=== PATIENT | male | born 1950 | race Hispanic/Latino ===

== ENCOUNTER 2020-12-23 22:33 | Emergency (ER) | payer OTHER ==
[2020-12-23 23:17] LABS: Basophils % 0.6 % (0-1.3); Hematocrit 36.4 % (39.6-49.0); Lymphocytes % 27.9 % (15.3-44.8); MPV 7.7 fL (7.6-11.3); RBC Red Blood Cell Count 4.43 M/uL (4.33-5.43)
[2020-12-23 23:18] LABS: Protime INR 0.98
[2020-12-23 23:31] LABS: ALT/SGPT 47 U/L (12-78); AST/SGOT 34 U/L (15-37); Albumin 3.9 g/dL (3.4-5.0); Alkaline Phosphatase 86 U/L (45-117); BUN Blood Urea Nitrogen 35 mg/dL (7-18); Bicarbonate 29 mmol/L (21-32); Bilirubin Direct < 0.1 mg/dL (0-0.2); Bilirubin Total 0.3 mg/dL (0.2-1.0); Glucose Level 96 mg/dL (74-106); Magnesium 2.1 mg/dL (1.8-2.4); NT PRO-BNP 22 pg/mL (<125); Potassium 4.2 mmol/L (3.5-5.1); Protein, Total 8.2 g/dL (6.4-8.2); Sodium Level 142 mmol/L (136-145); Troponin (Emerg Dept Use Only) < 0.02 ng/mL (0.0-0.045)
[2020-12-23] MEDS ORDERED: NITROGLYCERIN 0.4 MG/TAB SL ONE (23:35)
[2020-12-23] MEDS ORDERED: ASPIRIN EC 81 MG TAB PO ONE (23:35)
--- NOTE | 2020-12-24 01:27 | ER ---
Nurse's Notes [facility] Name: Wagner Elias Age: 70 yrs Sex: Male : 1950 Arrival Date: 12/23/2020 Time: 22:37 Bed 15 Private MD: Diagnosis: Chest pain, unspecified Presentation: 12/23 22:44 Chief complaint: EMS states: Pt presents to ED via EMS from home for c/o headache ad5 yesterday with generalized weakness. Pt reports "chest heavy", reports intermittent at this time. Pt denies headache, paresthesias or other c/o. AAOx3, speech clear and appropriate, DEVLIN with ease, facial symmetry noted. Pt ambulatory from EMS stretcher to ED stretcher with slow, but steady gait. No focal deficits noted. Coronavirus screen: At this time, the client does not indicate any symptoms associated with coronavirus-19. Ebola Screen: No symptoms or risks identified at this time. Initial Sepsis Screen: Does the patient meet any 2 criteria? No. Patient's initial sepsis screen is negative. Does the patient have a suspected source of infection? No. Patient's initial sepsis screen is negative. Risk Assessment: Do you want to hurt yourself or someone else? Patient reports no desire to harm self or others. Onset of symptoms was December 22, 2020. 22:44 Method Of Arrival: EMS ad5 22:44 Acuity: VÍCTOR 3 ad5 Historical: - Allergies: 22:47 No Known Allergies; ad5 - Home Meds: 22:47 Lisinopril Oral [Active]; Trazodone Oral [Active]; ad5 - PMHx: 22:47 Hypertension; TIA; ad5 - Immunization history:: Adult Immunizations unknown. - Social history:: Smoking status: unknown. Screenin:47 Abuse screen: Denies threats or abuse. Denies injuries from another. Nutritional ad5 screening: No deficits noted. Tuberculosis screening: No symptoms or risk factors identified. Fall Risk None identified. Assessment: 22:47 General: Appears in no apparent distress. Behavior is calm, cooperative, appropriate ad5 for age. Pain: Denies pain. Neuro: No deficits noted. Level of Consciousness is awake, alert, obeys commands, Oriented to person, place, time, situation, Appropriate for age Nuclear Medicine Tech are equal bilaterally Moves all extremities. Gait is steady, Speech is normal, Facial symmetry appears normal, Pupils are PERRLA, Intact. Cardiovascular: No deficits noted. Heart tones S1 S2 present Capillary refill < 3 seconds Patient's skin is warm and dry. Respiratory: No deficits noted. Airway is patent Respiratory effort is even, unlabored, Respiratory pattern is regular, symmetrical, Breath sounds are clear bilaterally. GI: No deficits noted. No signs and/or symptoms were reported involving the gastrointestinal system. : No deficits noted. No signs and/or symptoms were reported regarding the genitourinary system. Derm: Skin is pink, warm \\T\\ dry. 12/24 00:00 Reassessment: Patient appears in no apparent distress at this time. Patient and/or ad5 family updated on plan of care and expected duration. Pain level reassessed. Patient is alert, oriented x 3, equal unlabored respirations, skin warm/dry/pink. Patient states symptoms have improved. 01:17 Reassessment: Patient appears in no apparent distress at this time. Patient and/or ad5 family updated on plan of care and expected duration. Pain level reassessed. Patient is alert, oriented x 3, equal unlabored respirations, skin warm/dry/pink. Patient denies pain at this time. Patient states feeling better. 02:08 Reassessment: Patient appears in no apparent distress at this time. No changes from ad5 previously documented assessment. Patient is alert, oriented x 3, equal unlabored respirations, skin warm/dry/pink. Vital Signs: 12/23 22:44 BP 167 / 108; Pulse 66; Resp 14 S; Temp 98.2; Pulse Ox 100% on R/A; Weight 60.78 kg; ad5 Height 5 ft. 1 in. (154.94 cm); Pain 0/10; 12/24 00:00 BP 104 / 94; Pulse 74; Resp 16 S; Pulse Ox 99% on R/A; ad5 01:17 BP 131 / 80; Pulse 67; Resp 15 S; Pulse Ox 98% on R/A; ad5 02:07 BP 138 / 93; Pulse 69; Resp 16 S; Pulse Ox 99% on R/A; Pain 0/10; ad5 12/23 22:44 Body Mass Index 25.32 (60.78 kg, 154.94 cm) ad5 ED Course: 12/23 22:37 Patient arrived in ED. mw2 22:44 Wesley, Galileo is Primary Nurse. ad5 22:45 Patient has correct armband on for positive identification. Placed in gown. Bed in low ad5 position. Call light in reach. Side rails up X2. school bus monitor on. Pulse ox on. NIBP on. Door closed. Noise minimized. Head of bed elevated. 22:47 Triage completed. ad5 22:47 No provider procedures requiring assistance completed. Maintain EMS IV. Dressing ad5 intact. Good blood return noted. Site clean \\T\\ dry. Gauge \\T\\ site: 20g RAC. 22:49 Arm band placed on. ad5 22:56 Kip River PA is PHCP. jr8 22:56 Felipe Meehan MD is Attending Physician. jr8 23:20 XRAY Chest (1 view) In Process Unspecified. EDIL 12/24 01:18 Troponin (emerg Dept Use Only) Sent. ad5 01:26 Wild Crowell MD is Referral Physician. jr8 02:18 IV discontinued, intact, bleeding controlled, No redness/swelling at site. Pressure ad5 dressing applied. Administered Medications: 12/23 23:25 Drug: Aspirin Chewable Tablet 324 mg Route: PO; ad5 12/24 00:20 Follow up: Response: No adverse reaction ad5 12/23 23:25 Drug: Nitroglycerin 0.4 mg Route: Sublingual; ad5 12/24 00:20 Follow up: Response: No adverse reaction; Blood pressure is lowered ad5 Outcome: 01:26 Discharge ordered by . jr8 02:18 Discharged to home ambulatory, with family. ad5 02:18 Condition: stable 02:18 Discharge instructions given to patient, Instructed on discharge instructions, follow up and referral plans. Demonstrated understanding of instructions, follow-up care. 02:19 Patient left the ED. ad5 Signatures: Dispatcher [employer] EDIL Kip River PA PA jr8 Milton Campbell mw2 Galileo Wesley ad5
--- NOTE | 2020-12-24 01:27 | EDPHYS ---
Physician Documentation [facility] Name: Wagner Elias Age: 70 yrs Sex: Male : 1950 Arrival Date: 12/23/2020 Time: 22:37 Bed 15 Private MD: ED Physician Felipe Meehan HPI: 12/23 23:50 This 70 yrs old Male presents to ER via EMS with complaints of chest pain. jr8 23:50 The patient or guardian reports chest pain that is located primarily in the substernal jr8 area. Onset: acutely, today, about 6 pm tonight . The pain does not radiate. Associated signs and symptoms: Pertinent positives: palpitations. The chest pain is described as a pressure. Duration: The patient or guardian reports a single episode, that is still ongoing. Modifying factors: The symptoms are alleviated by nothing. the symptoms are aggravated by nothing. Severity of pain: At its worst the pain was moderate in the emergency department the pain is unchanged. The patient has not experienced similar symptoms in the past. The patient has not recently seen a physician. Historical: - Allergies: 22:47 No Known Allergies; ad5 - Home Meds: 22:47 Lisinopril Oral [Active]; Trazodone Oral [Active]; ad5 - PMHx: 22:47 Hypertension; TIA; ad5 - Immunization history:: Adult Immunizations unknown. - Social history:: Smoking status: unknown. ROS: 23:50 Eyes: Negative for injury, pain, redness, and discharge, ENT: Negative for injury, jr8 pain, and discharge, Neck: Negative for injury, pain, and swelling, Respiratory: Negative for shortness of breath, cough, wheezing, and pleuritic chest pain, Abdomen/GI: Negative for abdominal pain, nausea, vomiting, diarrhea, and constipation, Back: Negative for injury and pain, MS/Extremity: Negative for injury and deformity, Skin: Negative for injury, rash, and discoloration, Neuro: Negative for headache, weakness, numbness, tingling, and seizure. 23:50 Cardiovascular: Positive for chest pain, palpitations. Exam: 23:50 Eyes: Pupils equal round and reactive to light, extra-ocular motions intact. Lids and jr8 lashes normal. Conjunctiva and sclera are non-icteric and not injected. Cornea within normal limits. Periorbital areas with no swelling, redness, or edema. ENT: Nares patent. No nasal discharge, no septal abnormalities noted. Tympanic membranes are normal and external auditory canals are clear. Oropharynx with no redness, swelling, or masses, exudates, or evidence of obstruction, uvula midline. Mucous membranes moist. Neck: Trachea midline, no thyromegaly or masses palpated, and no cervical lymphadenopathy. Supple, full range of motion without nuchal rigidity, or vertebral point tenderness. No Meningismus. Cardiovascular: Regular rate and rhythm with a normal S1 and S2. No gallops, murmurs, or rubs. Normal PMI, no JVD. No pulse deficits. Respiratory: Lungs have equal breath sounds bilaterally, clear to auscultation and percussion. No rales, rhonchi or wheezes noted. No increased work of breathing, no retractions or nasal flaring. Abdomen/GI: Soft, non-tender, with normal bowel sounds. No distension or tympany. No guarding or rebound. No evidence of tenderness throughout. Back: No spinal tenderness. No costovertebral tenderness. Full range of motion. Skin: Warm, dry with normal turgor. Normal color with no rashes, no lesions, and no evidence of cellulitis. MS/ Extremity: Pulses equal, no cyanosis. Neurovascular intact. Full, normal range of motion. Neuro: Awake and alert, GCS 15, oriented to person, place, time, and situation. Cranial nerves II-XII grossly intact. Motor strength 5/5 in all extremities. Sensory grossly intact. Cerebellar exam normal. Normal gait. Vital Signs: 22:44 BP 167 / 108; Pulse 66; Resp 14 S; Temp 98.2; Pulse Ox 100% on R/A; Weight 60.78 kg; ad5 Height 5 ft. 1 in. (154.94 cm); Pain 0/10; 12/24 00:00 BP 104 / 94; Pulse 74; Resp 16 S; Pulse Ox 99% on R/A; ad5 01:17 BP 131 / 80; Pulse 67; Resp 15 S; Pulse Ox 98% on R/A; ad5 02:07 BP 138 / 93; Pulse 69; Resp 16 S; Pulse Ox 99% on R/A; Pain 0/10; ad5 12/23 22:44 Body Mass Index 25.32 (60.78 kg, 154.94 cm) ad5 MDM: 12/23 22:56 Patient medically screened. jr8 23:50 The patient was given aspirin in the Emergency Department. Data reviewed: vital signs, jr8 nurses notes, lab test result(s), EKG, radiologic studies, plain films. Data interpreted: Pulse oximetry: on room air is 100 %. Interpretation: normal. Counseling: I had a detailed discussion with the patient and/or guardian regarding: the historical points, exam findings, and any diagnostic results supporting the discharge/admit diagnosis, lab results, radiology results. 12/24 01:23 Differential diagnosis: abnormal EKG, acute myocardial infarction, anxiety, pulmonary jr8 embolus, stable angina, thoracic aortic disection, unstable angina, Hypertensive Urgency. ED course: Patient currently without pain. No elevation in troponin. Will d/c home to f/u with cardiology. Return precautions given . 12/23 22:58 Order name: Basic Metabolic Panel; Complete Time: 23:37 ad5 12/23 22:58 Order name: CBC with Diff; Complete Time: 23:37 ad5 12/23 22:58 Order name: LFT's; Complete Time: 23:37 ad5 12/23 22:58 Order name: Magnesium; Complete Time: 23:37 ad5 12/23 22:58 Order name: NT PRO-BNP; Complete Time: 23:37 ad5 12/23 22:58 Order name: PT-INR; Complete Time: 23:37 ad5 12/23 22:58 Order name: Troponin (emerg Dept Use Only); Complete Time: 23:37 ad5 12/23 22:58 Order name: XRAY Chest (1 view); Complete Time: 13:33 ad5 12/23 22:58 Order name: EKG; Complete Time: 22:59 ad5 12/23 22:58 Order name: Cardiac monitoring; Complete Time: 22:58 ad5 12/23 22:58 Order name: EKG - Nurse/Tech; Complete Time: 22:58 ad5 12/24 00:41 Order name: Troponin (emerg Dept Use Only); Complete Time: 13:33 jr8 12/23 22:58 Order name: IV Saline Lock; Complete Time: 22:58 ad5 12/23 22:58 Order name: Labs collected and sent; Complete Time: 22:58 ad5 12/23 22:58 Order name: O2 Sat Monitoring; Complete Time: 22:58 ad5 Administered Medications: 12/23 23:25 Drug: Aspirin Chewable Tablet 324 mg Route: PO; ad5 12/24 00:20 Follow up: Response: No adverse reaction ad5 12/23 23:25 Drug: Nitroglycerin 0.4 mg Route: Sublingual; ad5 12/24 00:20 Follow up: Response: No adverse reaction; Blood pressure is lowered ad5 Disposition: 05:39 Co-signature as Attending Physician, Felipe Meehan MD. ma2 Disposition Summary: 12/24/20 01:26 Discharge Ordered Location: Home jr8 Problem: new jr8 Symptoms: are resolved jr8 Condition: Stable jr8 Diagnosis - Chest pain, unspecified jr8 Followup: jr8 - With: Wild Crowell MD - When: 2 - 3 days - Reason: Recheck today's complaints, Continuance of care, Re-evaluation by your physician Discharge Instructions: - Discharge Summary Sheet jr8 - Nonspecific Chest Pain, Adult jr8 - Aspirin and Your Heart jr8 Forms: - Medication Reconciliation Form jr8 - Thank You Letter jr8 - Antibiotic Education jr8 - Prescription Opioid Use jr8 Signatures: Dispatcher [employer] EDKip Norris PA PA jr8 Felipe Meehan MD MD ma2 Galileo Wesley ad5 Corrections: (The following items were deleted from the chart) 00:41 12/23 23:50 Onset: acutely, today, jr8 jr8
[2020-12-24 02:24] VITALS: TEMP 98.2
[2020-12-24 02:30] VITALS: BP 138/93; O2SAT 99
--- NOTE | 2020-12-24 09:05 | RAD REPORT ---
EXAM DESCRIPTION: RAD - Chest Single View - 12/23/2020 11:20 pm CLINICAL HISTORY: weakness Chest pain. COMPARISON: Chest Pa And Lat (2 Views) dated 06/21/2019 FINDINGS: Portable technique limits examination quality. The lungs are grossly clear. The heart is normal in size. Mildly tortuous thoracic aorta. No displace d fractures. IMPRESSION: No acute intrathoracic process suspected.
--- NOTE | 2020-12-25 06:21 | EKG ---
Test Date: 2020-12-23 Test Time: 22:55:10 It Service Delivery Manager: ALEXIS MEASUREMENT RESULTS: Intervals: Rate: 70 WI: 164 QRSD: 82 QT: 392 QTc: 423 [place]: P: 59 WI: 164 QRS: 3 T: 58 INTERPRETIVE STATEMENTS: Normal sinus rhythm Normal ECG Compared to ECG 06/21/2019 12:59:26 No significant changes Electronically Signed On 12-25-20 06:18:05 CDT by Wild Crowell
== END 2020-12-24 02:19 | disposition home or self-care (01) ==
LOC: ER 22:33
DX: R07.9 Chest pain, unspecified (principal); R00.2 Palpitations; I10 Essential (primary) hypertension
CPT/HCPCS: 36415; 71045; 80048; 80076; 83735; 83880; 84484; 85025; 85610; 93005; 99284

== ENCOUNTER 2022-02-24 17:06 | Emergency (ER) | payer OTHER ==
--- NOTE | 2022-02-24 18:00 | RAD REPORT ---
EXAM DESCRIPTION: CT - [id number] - 02/24/2022 5:35 pm CLINICAL HISTORY: Trauma, head and neck injury. fall COMPARISON: No comparisons TECHNIQUE: Axial 5 mm thick images of the head were obtained. Axial 2 mm thick images of the cervical spine were obtained with sagittal and coronal reconstruction images generated and reviewed. All CT scans are performed using dose optimization technique as appropriate and may include automated exposure control or mA/KV adjustment according to patient size. FINDINGS: CT HEAD WITHOUT CONTRAST: No acute hemorrhage, hydrocephalus or extra-axial collection is identified.Brain atrophy is present w ith significant chronic periventricular and deep white matter microvascular ischemia.Area of gliosis is seen distribution of the right posterior cerebral artery compatible with old infarct. The paranasal sinuses and mastoids are clear.The calvarium is intact. CT CERVICAL SPINE WITHOUT CONTRAST: No fracture or subluxation.No prevertebral soft tissues swelling is identified. IMPRESSION: No acute intracranial or cervical spine findings.
[2022-02-24] MEDS ORDERED: TETANUS & DIPHTHERIA TOX,ADULT 0.5 ML VIAL ONE (18:02)
--- NOTE | 2022-02-24 18:04 | EDPHYS ---
Physician Documentation [facility] Name: Wagner Elias Age: 72 yrs Sex: Male : 1950 Arrival Date: 02/24/2022 Time: 17:07 Bed 3 Private MD: ED Physician Lincoln Mauro HPI: 02/24 17:12 This 72 yrs old Male presents to ER via Unassigned with complaints of Fall. ms3 17:12 72-year-old male with past medical history of hypertension, hyperlipidemia, CVA ms3 presents after falling in a parking lot while running. Patient denies loss of consciousness. Patient states he tripped just prior to EMSs arrival. Patient denies taking blood thinners. Patient denies pain at this time. Patient denies alleviating or inciting factors. Patient denies nausea, vomiting, shortness of breath, chest pain.. Historical: - Allergies: 18:09 No Known Allergies; tp1 - Home Meds: 18:09 lisinopril Oral [Active]; Trazodone Oral [Active]; gabapentin oral [Active]; tp1 - PMHx: 18:09 Hypertension; TIA; Dementia; tp1 - PSHx: 18:09 None; tp1 - Immunization history:: Client reports receiving the 2nd dose of the Covid vaccine. - Social history:: Smoking status: Patient denies any tobacco usage or history of. ROS: 17:12 Constitutional: Negative for fever, and chills. Eyes: Negative for injury, pain, ms3 redness, and discharge, Neck: Negative for injury, pain, and swelling, Back: Negative for injury and pain, MS/Extremity: Negative for injury and deformity. 17:12 Skin: Positive for abrasion(s). 17:12 All other systems are negative. Exam: 17:12 Constitutional: This is a well developed, well nourished patient who is awake, alert, ms3 and in no acute distress. Head/Face: Normocephalic, atraumatic. Neck: Trachea midline, no cervical lymphadenopathy. Supple, full range of motion without nuchal rigidity, or vertebral point tenderness. No Meningismus. Chest/axilla: Normal chest wall appearance and motion. Nontender with no deformity. Cardiovascular: Regular rate and rhythm with a normal S1 and S2. No gallops, murmurs, or rubs. Normal PMI, no JVD. No pulse deficits. Respiratory: Lungs have equal breath sounds bilaterally, clear to auscultation and percussion. No rales, rhonchi or wheezes noted. No increased work of breathing, no retractions or nasal flaring. Abdomen/GI: Soft, non-tender, with normal bowel sounds. No distension or tympany. No guarding or rebound. No evidence of tenderness throughout. 17:12 Skin: injury, abrasion(s), very small abrasion noted, of the palmar aspect of distal phalanx of left middle finger, Minimal bleeding under left index finger. Vital Signs: 17:10 BP 138 / 91; Pulse 82; Resp 16; Pulse Ox 99% ; Weight 63.5 kg; Height 5 ft. 5 in. tp1 (165.10 cm); 18:09 BP 129 / 88; Pulse 64; Resp 16; Temp 98.0; Pulse Ox 100% on R/A; tp1 17:10 Body Mass Index 23.30 (63.50 kg, 165.10 cm) tp1 MDM: 17:07 Patient medically screened. ms3 17:12 Differential diagnosis: abrasion, closed head injury, fracture, sprain, strain. ms3 18:04 Data reviewed: vital signs, nurses notes, radiologic studies, and as a result, I will ms3 discharge patient. Counseling: I had a detailed discussion with the patient and/or guardian regarding: the historical points, exam findings, and any diagnostic results supporting the discharge/admit diagnosis, radiology results, the need for outpatient follow up, to return to the emergency department if symptoms worsen or persist or if there are any questions or concerns that arise at home. Special discussion: I discussed with the patient/guardian in detail that at this point there is no indication for admission to the hospital. It is understood, however, that if the symptoms persist or worsen the patient needs to return immediately for re-evaluation. ED course: Discussed CT findings with patient. Patient understands and agrees with plan. All questions were answered. Return precautions discussed include worsening symptoms, or any other concerns. On reevaluation patient is alert and oriented x4, in no apparent distress, nontoxic, ambulatory in the emergency department.. 02/24 17:12 Order name: CT Head C Spine; Complete Time: 18:01 ms3 Administered Medications: 16:02 Drug: Tetanus Toxoid,Adsorbed 0.5 ml {Catalytic Case Operator: adRise. Exp: 10/30/2023. Lot tp1 #: [id number]. } Route: IM; Site: right deltoid; 18:37 Follow up: Response: No adverse reaction tp1 Disposition Summary: 02/24/22 18:03 Discharge Ordered Location: Home ms3 Condition: Stable ms3 Diagnosis - Fall on same level, unspecified ms3 - Abrasion of left middle finger, initial encounter ms3 - Essential (primary) hypertension ms3 Followup: ms3 - With: Jarad Holcomb DO - When: 2 - 3 days - Reason: Recheck today's complaints, Re-evaluation by your physician Discharge Instructions: - Discharge Summary Sheet ms3 - Abrasion ms3 - Hypertension, Adult ms3 Forms: - Medication Reconciliation Form ms3 - Thank You Letter ms3 - Antibiotic Education ms3 - Prescription Opioid Use ms3 Signatures: Dispatcher [employer] Lincoln Coats DO DO ms3 Nedra Mendez, RN RN tp1
--- NOTE | 2022-02-24 18:04 | ER ---
Nurse's Notes [facility] Name: Wagner Elias Age: 72 yrs Sex: Male : 1950 Arrival Date: 02/24/2022 Time: 17:07 Bed 3 Private MD: Diagnosis: Fall on same level, unspecified;Abrasion of left middle finger, initial encounter;Essential (primary) hypertension Presentation: 02/24 17:10 Coronavirus screen: Vaccine status: Patient reports receiving the 2nd dose of the covid tp1 vaccine. Ebola Screen: Patient negative for fever greater than or equal to 101.5 degrees Fahrenheit, and additional compatible Ebola Virus Disease symptoms Patient denies exposure to infectious person. Patient denies travel to an Ebola-affected area in the 21 days before illness onset. Initial Sepsis Screen: Does the patient meet any 2 criteria? No. Patient's initial sepsis screen is negative. Does the patient have a suspected source of infection? No. Patient's initial sepsis screen is negative. Risk Assessment: Do you want to hurt yourself or someone else? Patient reports no desire to harm self or others. Onset of symptoms was February 24, 2022. 17:10 Method Of Arrival: EMS: [facility] tp1 17:10 Acuity: VÍCTOR 4 tp1 17:10 Chief complaint: EMS states: toned out to PT home. reported PT was running around [facility] apartment complex when he tripped and fell. reports small cut to the finger. states family insisted on PT coming into ER because he is out of his medications. BP 139/89, HR 91. Triage Assessment: 17:10 General: Appears in no apparent distress. comfortable, Behavior is calm, cooperative. tp1 Pain: Denies pain. EENT: No signs and/or symptoms were reported regarding the EENT system. Neuro: Level of Consciousness is awake, alert, obeys commands, Oriented to person, place, time, situation. Cardiovascular: Patient's skin is warm and dry. Respiratory: Airway is patent Respiratory effort is even, unlabored. GI: Abdomen is round non-distended. : No signs and/or symptoms were reported regarding the genitourinary system. Derm: Skin is pink, warm \T\ dry. Musculoskeletal: Circulation, motion, and sensation intact. Historical: - Allergies: 18:09 No Known Allergies; tp1 - Home Meds: 18:09 lisinopril Oral [Active]; Trazodone Oral [Active]; gabapentin oral [Active]; tp1 - PMHx: 18:09 Hypertension; TIA; Dementia; tp1 - PSHx: 18:09 None; tp1 - Immunization history:: Client reports receiving the 2nd dose of the Covid vaccine. - Social history:: Smoking status: Patient denies any tobacco usage or history of. Screenin:08 Abuse screen: Denies threats or abuse. Denies injuries from another. Nutritional tp1 screening: No deficits noted. Tuberculosis screening: No symptoms or risk factors identified. Fall Risk Fall in past 12 months (25 points). No secondary diagnosis (0 pts). No IV (0 pts). Ambulatory Aid- None/Bed Rest/Nurse Assist (0 pts). Gait- Normal/Bed Rest/Wheelchair (0 pts) Mental Status- Oriented to own ability (0 pts). Total Muro Fall Scale indicates No Risk (0-24 pts). Assessment: 17:10 General: see triage notes. tp1 18:08 Reassessment: Patient appears in no apparent distress at this time. No changes from tp1 previously documented assessment. Patient and/or family updated on plan of care and expected duration. Pain level reassessed. Patient is alert, oriented x 3, equal unlabored respirations, skin warm/dry/pink. 18:16 Reassessment: spoke to , updated on plan of care. tp1 18:25 Reassessment: call to speak about arrangements for discharge transportation. tp1 Vital Signs: 17:10 BP 138 / 91; Pulse 82; Resp 16; Pulse Ox 99% ; Weight 63.5 kg; Height 5 ft. 5 in. tp1 (165.10 cm); 18:09 BP 129 / 88; Pulse 64; Resp 16; Temp 98.0; Pulse Ox 100% on R/A; tp1 17:10 Body Mass Index 23.30 (63.50 kg, 165.10 cm) tp1 ED Course: 17:07 Patient arrived in ED. ms3 17:10 Arm band placed on. tp1 17:10 Patient has correct armband on for positive identification. Bed in low position. Call tp1 light in reach. Side rails up X 1. 17:10 Patient did not have IV access during this emergency room visit. tp1 17:16 Nedra Mendez, RUSLAN is Primary Nurse. tp1 17:16 Lincoln Mauro DO is Attending Physician. ms3 17:36 Triage completed. tp1 17:37 CT Head C Spine In Process Unspecified. EDMS 18:02 Jarad Holcomb DO is Referral Physician. ms3 18:08 No provider procedures requiring assistance completed. tp1 Administered Medications: 16:02 Drug: Tetanus Toxoid,Adsorbed 0.5 ml {Senior Technical Project Manager: [employer]. Exp: 10/30/2023. Lot tp1 #: [id number]. } Route: IM; Site: right deltoid; 18:37 Follow up: Response: No adverse reaction tp1 Medication: 17:40 Vaccine Information Statement (VIS) provided today. Questions and/or concerns tp1 addressed. VIS edition date: January 29, 2021. Outcome: 18:03 Discharge ordered by . ms3 18:36 Discharged to home ambulatory. tp1 18:36 Condition: good 18:36 Discharge instructions given to patient, Instructed on discharge instructions, follow up and referral plans. Demonstrated understanding of instructions, follow-up care. 18:36 Patient left the ED. tp1 Signatures: Dispatcher [employer] EDMS Lincoln Mauro DO DO ms3 Nedra Mendez RN RN tp1 Corrections: (The following items were deleted from the chart) 17:39 17:10 Chief complaint: Patient states: toned out to PT home. Reported PT was running tp1 around apartment complex when he tripped and fell. Stated PT did not hit head or lose consciousness. reported PT has a small cut on finger, BP 139/89, HR 91, RR 16, 98% RA. tp1 18:08 17:10 No provider procedures requiring assistance completed. tp1 tp1
[2022-02-24 20:06] VITALS: BP 129/88; TEMP 98; O2SAT 100
== END 2022-02-24 18:36 | disposition home or self-care (01) ==
LOC: ER 17:06
DX: S60.413A Abrasion of left middle finger, initial encounter (principal); I10 Essential (primary) hypertension; W18.30XA Fall on same level, unspecified, initial encounter; Z23 Encounter for immunization; F03.90 Unspecified dementia, unspecified severity, without behavioral disturbance, psychotic disturbance, mood disturbance, and anxiety
CPT/HCPCS: 70450; 72125; 90471; 90714; 99283

== ENCOUNTER 2022-09-01 18:20 | Emergency (ER) | payer OTHER ==
--- NOTE | 2022-09-01 20:29 | RAD REPORT ---
EXAM DESCRIPTION: RAD - Chest Single View - 09/01/2022 8:06 pm CLINICAL HISTORY: CONGESTION Chest pain. COMPARISON: Chest Single View dated 12/23/2020; Chest Pa And Lat (2 Views) dated 06/21/2019 FINDINGS: Portable technique limits examination quality. The lungs are grossly clear. The heart is normal in size. No displaced fractures. IMPRESSION: No acute intrathoracic process suspected.
[2022-09-01 21:21] VITALS: TEMP 98.4
[2022-09-01 21:24] VITALS: BP 130/88; O2SAT 99
--- NOTE | 2022-09-16 15:27 | ER ---
Nurse's Notes [facility] Name: Wagner Elias Age: 72 yrs Sex: Male : 1950 Arrival Date: 09/01/2022 Time: 18:24 Bed 12 Private MD: Diagnosis: Essential (primary) hypertension Presentation: 09/01 18:36 Chief complaint: EMS states: Called 911 for home BP 175/101, took an extra lisinopril hb while waiting for ambulance. Denies HAWTHORNE/dizziness/nausea/numbness. Coronavirus screen: At this time, the client does not indicate any symptoms associated with coronavirus-19. Ebola Screen: No symptoms or risks identified at this time. Initial Sepsis Screen: Does the patient meet any 2 criteria? No. Patient's initial sepsis screen is negative. Does the patient have a suspected source of infection? No. Patient's initial sepsis screen is negative. Risk Assessment: Do you want to hurt yourself or someone else? Patient reports no desire to harm self or others. Onset of symptoms was September 01, 2022. 18:36 Method Of Arrival: EMS: [facility] hb 18:36 Acuity: VÍCTOR 4 hb Historical: - Allergies: 18:37 No Known Allergies; hb - PMHx: 18:37 Dementia; Hypertension; TIA; hb - Immunization history:: Adult Immunizations up to date. - Social history:: Smoking status: unknown. Screenin:30 [facility] ED Fall Risk Assessment (Adult) Score/Fall Risk Level 0 - 2 = Low Risk. Abuse eh3 screen: Denies threats or abuse. Denies injuries from another. Nutritional screening: No deficits noted. Tuberculosis screening: No symptoms or risk factors identified. Assessment: 19:30 General: Appears in no apparent distress. uncomfortable, Behavior is calm, cooperative, eh3 appropriate for age. Pain: Denies pain. Neuro: Level of Consciousness is awake, alert, obeys commands, Oriented to person, place, time, situation. Cardiovascular: Capillary refill < 3 seconds Patient's skin is warm and dry. Respiratory: Airway is patent Respiratory effort is even, unlabored, Respiratory pattern is regular, symmetrical. GI: No signs and/or symptoms were reported involving the gastrointestinal system. Abdomen is round non-distended. : No signs and/or symptoms were reported regarding the genitourinary system. EENT: No signs and/or symptoms were reported regarding the EENT system. Derm: No signs and/or symptoms reported regarding the dermatologic system. Skin is pink, warm \T\ dry. Musculoskeletal: No signs and/or symptoms reported regarding the musculoskeletal system. Circulation, motion, and sensation intact. Range of motion: intact in all extremities. 19:45 Reassessment: Pt states his blood pressure is fine now, he does not want an EKG or eh3 bloodwork, and wants to go home. Provider notified. Vital Signs: 18:36 BP 125 / 95; Pulse 71; Resp 16; Temp 98.4; Pulse Ox 100% ; Weight 88.45 kg; Height 5 hb ft. 5 in. ; Pain 0/10; 19:30 BP 130 / 96; Pulse 68; Resp 16; Pulse Ox 100% on R/A; eh3 19:45 BP 130 / 88; Pulse 66; Resp 16; Pulse Ox 99% on R/A; eh3 18:36 Body Mass Index 32.45 (88.45 kg, 165.1 cm) hb 18:36 Pain Scale: Adult hb ED Course: 18:24 Patient arrived in ED. mr 18:37 Triage completed. 19:15 Jessy Corrales, RN is Primary Nurse. [facility] 19:28 Rodri Vergara MD is Attending Physician. [facility] 19:30 Patient has correct armband on for positive identification. Bed in low position. Call eh3 light in reach. Side rails up X2. Client placed on continuous cardiac and pulse oximetry monitoring. NIBP monitoring applied. Door closed. Noise minimized. 20:08 XRAY Chest (1 view) In Process Unspecified. EDMS 20:25 Shay Gomes MD is Referral Physician. [facility] Administered Medications: No medications were administered Outcome: 20:26 Discharge ordered by . [facility] 20:47 Patient left the ED. 3 Signatures: Dispatcher [employer] EDRodri Cueto MD MD cha Rivera, Mary Loni Fournier, RN RUSLAN Jessy Corrales, RUSLAN RN 3
--- NOTE | 2022-09-16 15:27 | EDPHYS ---
Physician Documentation [facility] Name: Wagner Elias Age: 72 yrs Sex: Male : 1950 Arrival Date: 09/01/2022 Time: 18:24 Bed 12 Private MD: ED Physician Rodri Vergara HPI: 09/01 20:21 This 72 yrs old Male presents to ER via EMS with complaints of High Blood briana Pressure. 20:21 The patient has elevated blood pressure and discovered this at home, with a home briana device. Onset: The symptoms/episode began/occurred 1 day(s) ago. Modifying factors: The symptoms are aggravated by activity, The symptoms are alleviated by remaining still. Associated signs and symptoms: The patient has no apparent associated signs or symptoms. Severity of symptoms: At its worst the blood pressure was mild, in the emergency department the blood pressure is unchanged. Historical: - Allergies: 18:37 No Known Allergies; hb - PMHx: 18:37 Dementia; Hypertension; TIA; hb - Immunization history:: Adult Immunizations up to date. - Social history:: Smoking status: unknown. ROS: 20:22 Constitutional: Negative for fever, chills, and weight loss, Eyes: Negative for injury, briana pain, redness, and discharge, ENT: Negative for injury, pain, and discharge, Neck: Negative for injury, pain, and swelling, Cardiovascular: Negative for chest pain, palpitations, and edema, Respiratory: Negative for shortness of breath, cough, wheezing, and pleuritic chest pain, Abdomen/GI: Negative for abdominal pain, nausea, vomiting, diarrhea, and constipation, Back: Negative for injury and pain, : Negative for injury, bleeding, discharge, and swelling, MS/Extremity: Negative for injury and deformity, Skin: Negative for injury, rash, and discoloration, Neuro: Negative for headache, weakness, numbness, tingling, and seizure, Psych: Negative for depression, anxiety, suicide ideation, homicidal ideation, and hallucinations, Allergy/Immunology: Negative for hives, rash, and allergies, Endocrine: Negative for neck swelling, polydipsia, polyuria, polyphagia, and marked weight changes, Hematologic/Lymphatic: Negative for swollen nodes, abnormal bleeding, and unusual bruising. Exam: 20:22 Constitutional: This is a well developed, well nourished patient who is awake, alert, briana and in no acute distress. Head/Face: Normocephalic, atraumatic. Eyes: Pupils equal round and reactive to light, extra-ocular motions intact. Lids and lashes normal. Conjunctiva and sclera are non-icteric and not injected. Cornea within normal limits. Periorbital areas with no swelling, redness, or edema. ENT: Nares patent. No nasal discharge, no septal abnormalities noted. Tympanic membranes are normal and external auditory canals are clear. Oropharynx with no redness, swelling, or masses, exudates, or evidence of obstruction, uvula midline. Mucous membranes moist. Neck: Trachea midline, no thyromegaly or masses palpated, and no cervical lymphadenopathy. Supple, full range of motion without nuchal rigidity, or vertebral point tenderness. No Meningismus. Chest/axilla: Normal chest wall appearance and motion. Nontender with no deformity. No lesions are appreciated. Cardiovascular: Regular rate and rhythm with a normal S1 and S2. No gallops, murmurs, or rubs. Normal PMI, no JVD. No pulse deficits. Respiratory: Lungs have equal breath sounds bilaterally, clear to auscultation and percussion. No rales, rhonchi or wheezes noted. No increased work of breathing, no retractions or nasal flaring. Abdomen/GI: Soft, non-tender, with normal bowel sounds. No distension or tympany. No guarding or rebound. No evidence of tenderness throughout. Back: No spinal tenderness. No costovertebral tenderness. Full range of motion. Male : Normal genitalia with no discharge or lesions. Skin: Warm, dry with normal turgor. Normal color with no rashes, no lesions, and no evidence of cellulitis. MS/ Extremity: Pulses equal, no cyanosis. Neurovascular intact. Full, normal range of motion. Neuro: Awake and alert, GCS 15, oriented to person, place, time, and situation. Cranial nerves II-XII grossly intact. Motor strength 5/5 in all extremities. Sensory grossly intact. Cerebellar exam normal. Normal gait. Psych: Awake, alert, with orientation to person, place and time. Behavior, mood, and affect are within normal limits. Vital Signs: 18:36 BP 125 / 95; Pulse 71; Resp 16; Temp 98.4; Pulse Ox 100% ; Weight 88.45 kg; Height 5 hb ft. 5 in. ; Pain 0/10; 19:30 BP 130 / 96; Pulse 68; Resp 16; Pulse Ox 100% on R/A; eh3 19:45 BP 130 / 88; Pulse 66; Resp 16; Pulse Ox 99% on R/A; eh3 18:36 Body Mass Index 32.45 (88.45 kg, 165.1 cm) hb 18:36 Pain Scale: Adult hb MDM: 19:28 Patient medically screened. [facility] 20:23 Differential diagnosis: hypertensive crisis, Malignant HTN. Data reviewed: vital signs, [facility] nurses notes. Consideration of Admission/Observation Escalation of care including admission/observation considered. Test considered but Not performed: EKG: no test, refused. 09/01 19:30 Order name: XRAY Chest (1 view) [facility] 09/01 19:30 Order name: Cardiac monitoring [facility] 09/01 19:30 Order name: EKG - Nurse/Tech [facility] 09/01 19:30 Order name: IV Saline Lock [facility] 09/01 19:30 Order name: Labs collected and sent [facility] 09/01 19:30 Order name: O2 Per Protocol; Complete Time: 19:50 [facility] 09/01 19:30 Order name: O2 Sat Monitoring; Complete Time: 19:50 [facility] 09/01 19:30 Order name: Urine Dipstick-Ancillary (obtain specimen) [facility] Administered Medications: No medications were administered Disposition Summary: 09/01/22 20:26 Discharge Ordered Location: Home briana Problem: new briana Symptoms: have improved briana Condition: Stable briana Diagnosis - Essential (primary) hypertension briana Followup: briana - With: Private Physician - When: 2 - 3 days - Reason: Recheck today's complaints, Continuance of care, Re-evaluation by your physician Followup: briana - With: Shay Gomes MD - When: 2 - 3 days - Reason: Recheck today's complaints, Re-evaluation by your physician Discharge Instructions: - Discharge Summary Sheet briana - Hypertension, Adult briana - Hypertension, Adult, [id number] briana - How to Take Your Blood Pressure, Floi-sh-Ydre briana - Aspirin and Your Heart briana - Managing Your Hypertension briana Forms: - Medication Reconciliation Form briana - Thank You Letter briana - Antibiotic Education briana - Prescription Opioid Use briana Prescriptions: - Lisinopril 10 mg Oral Tablet - take 1 tablet by ORAL route once daily; 30 tablet; Refills: 0, Product briana Selection Permitted Signatures: Dispatcher [employer] Rodri Mayfield MD MD cha Baxter, Heather, RN RN Jessy Corrales RN RN eh3
== END 2022-09-01 20:47 | disposition home or self-care (01) ==
LOC: ER 18:20
DX: I10 Essential (primary) hypertension (principal); F03.90 Unspecified dementia, unspecified severity, without behavioral disturbance, psychotic disturbance, mood disturbance, and anxiety
CPT/HCPCS: 71045; 99283

== ENCOUNTER 2022-11-09 16:00 | Emergency (ER) | payer OTHER ==
[2022-11-09 17:52] LABS: Absolute Lymphocytes (CBC) 1.1 K/uL (0.7-4.9); Hematocrit 36.2 % (39.6-49.0); Lymphocytes % 8.7 % (15.3-44.8); MCV 82.6 fL (80-100); MPV 7.1 fL (7.6-11.3); RBC Red Blood Cell Count 4.38 M/uL (4.33-5.43)
[2022-11-09 18:06] LABS: Potassium 3.9 mEq/L (3.5-5.1); Troponin High Sensitivity 23.3 pg/mL (<58.9)
--- NOTE | 2022-11-09 18:24 | RAD REPORT ---
EXAM DESCRIPTION: CT - [id number] - 11/09/2022 5:58 pm CLINICAL HISTORY: witnessed fall COMPARISON: Head C Spine Mpr Wo Con dated 02/24/2022 TECHNIQUE: Axial thin cut noncontrast CT images of the head were obtained. Axial thin cut noncontrast CT images of the cervical spine were obtained. Multiplanar reformatted images were generated and reviewed. All CT scans are performed using dose optimization technique as appropriate and may include automated exposure control or mA/KV adjustment according to patient size. FINDINGS: CT HEAD WITHOUT CONTRAST: No acute hemorrhage, hydrocephalus or extra-axial collection is identified.Right occipital encephalom alacia, right basal ganglia focus of hypoattenuation which may relate to a small infarct, and conflue nt periventricular and deep white matter hypoattenuation which may represent chronic small vessel isc hemic changes, are all stable.No areas of brain edema or midline shift. The paranasal sinuses and mastoids are clear.The calvarium is intact. CT CERVICAL SPINE WITHOUT CONTRAST: No fracture or subluxation.No prevertebral soft tissues swelling is identified. IMPRESSION: No acute traumatic intracranial or cervical spine findings. Stable chronic findings as a elizabeth.
--- NOTE | 2022-11-09 18:50 | RAD REPORT ---
EXAM DESCRIPTION: Jackie Single View11/09/2022 5:57 pm CLINICAL HISTORY: fall COMPARISON: <Comparisons> TECHNIQUE: Portable AP view of the chest. FINDINGS: Patient is slightly rotated. The lungs are clear. No pneumothorax or effusion. Heart is no t enlarged. Apparent widening of the superior mediastinum, favored to represent tortuosity of the aor tic arch, accentuated by patient rotation. IMPRESSION: No acute cardiopulmonary process.
--- NOTE | 2022-11-09 18:56 | EDPHYS ---
Physician Documentation [facility] Name: Wagner Elias Age: 72 yrs Sex: Male : 1950 Arrival Date: 11/09/2022 Time: 16:00 Bed Treatment Private MD: ED Physician Rodri Vergara HPI: 11/09 17:30 This 72 yrs old Male presents to ER via Wheelchair with complaints of Fall jmm Injury. 17:30 Onset: The symptoms/episode began/occurred acutely, today. Is a 72-year-old male with jmm history of dementia, hypertension, TIA the presents emerged department after an unwitnessed fall. Son states he found the patient on the ground. States they have had difficulty with the patient having anxiety and checking his blood pressure multiple times. Is concerned that the patient may have taken multiple doses of his blood pressure medication. Historical: - Allergies: 17:10 No Known Allergies; iw - PMHx: 17:10 Dementia; Hypertension; TIA; iw - Immunization history:: Adult Immunizations up to date. - Social history:: Smoking status: Patient denies any tobacco usage or history of. ROS: 17:30 Constitutional: Negative for fever, chills, and weight loss, Cardiovascular: Negative jmm for chest pain, palpitations, and edema, Respiratory: Negative for shortness of breath, cough, wheezing, and pleuritic chest pain. 17:30 All other systems are negative. Exam: 17:30 Constitutional: This is a well developed, well nourished patient who is awake, alert, jmm and in no acute distress. Head/Face: atraumatic. Eyes: EOMI, no conjunctival erythema appreciated ENT: Moist Mucus Membranes Neck: Trachea midline, Supple Chest/axilla: Normal chest wall appearance and motion. Cardiovascular: Regular rate and rhythm. No edema appreciated Respiratory: Normal respirations, no respiratory distress appreciated Abdomen/GI: Non distended Back: Normal ROM Skin: General appearance color normal 17:30 Musculoskeletal/extremity: ROM: intact in all extremities. 17:30 Skin: Appearance: Color: normal in color. 17:30 Neuro: Orientation: is normal, Mentation: is normal, Memory: is normal. 17:30 Psych: Behavior/mood is pleasant, cooperative. Vital Signs: 17:08 BP 131 / 89; Pulse 110; Resp 18; Temp 99.8(O); Pulse Ox 97% on R/A; Weight 67.13 kg; iw Height 5 ft. 5 in. ; 17:57 BP 138 / 89; Pulse 78; Resp 18; Pulse Ox 100% on R/A; Pain 0/10; mb9 19:16 BP 129 / 86; Pulse 74; Resp 16; Pulse Ox 99% on R/A; mb9 17:08 Body Mass Index 24.63 (67.13 kg, 165.1 cm) iw 17:57 Pain Scale: Adult mb9 MDM: 16:45 Patient medically screened. briana 18:54 Differential diagnosis: closed head injury, multiple trauma, cva, acs. [facility] reviewed[facility], nurses notes, lab test result(s), radiologic studies, CT scan, plain films. Consideration of Admission/Observation Escalation of care including admission/observation considered. Counseling: I had a detailed discussion with the patient and/or guardian regarding: the historical points, exam findings, and any diagnostic results supporting the discharge/admit diagnosis, lab results, radiology results, the need for outpatient follow up, to return to the emergency department if symptoms worsen or persist or if there are any questions or concerns that arise at home. 11/09 17:28 Order name: CBC with Diff; Complete Time: 18:05 [facility] 11/09 17:28 Order name: BMP; Complete Time: 18:07 [facility] 11/09 17:28 Order name: Troponin High Sensitivity; Complete Time: 18:07 [facility] 11/09 17:04 Order name: Chest Single View XRAY; Complete Time: 18:54 [facility] 11/09 17:04 Order name: CT Head C Spine; Complete Time: 18:28 [facility] 11/09 17:28 Order name: Saline Lock; Complete Time: 17:56 [facility] 11/09 17:28 Order name: EKG - Nurse/Tech; Complete Time: 17:56 [facility] Administered Medications: No medications were administered Disposition: 11/10 09:53 Co-signature as Attending Physician, Thomas Ornelas MD I reviewed the patient's care rt provided by the Advanced Practice Provider and agree with the diagnosis and treatment plan. Disposition Summary: 11/09/22 18:55 Discharge Ordered [facility] Condition: Stable [facility] Diagnosis - [facility] of falling [facility] - With: Private Physician - When: 2 - 3 days - Reason: Recheck today's complaints, Continuance of care, Re-evaluation by your physician Discharge Instructions: - Discharge Summary Sheet jaime - Fall Prevention in the Home, Adult jaime Forms: - Medication Reconciliation Form jaime - Thank You Letter jaime - Antibiotic Education jaime - Prescription Opioid Use jaime Signatures: Dispatcher [employer] Rodri Mayfield MD MD cha Mickail, Joel, PA PA jmm Williams, Irene, RN RN iw Breneman, Mary Beth, RN RN mb9 Thomas Ornelas MD MD rt
--- NOTE | 2022-11-09 18:56 | ER ---
Nurse's Notes [facility] Name: Wagner Elias Age: 72 yrs Sex: Male : 1950 Arrival Date: 11/09/2022 Time: 16:00 Bed Treatment Private MD: Diagnosis: History of falling Presentation: 11/09 17:08 Chief complaint: Patient states: he is worried about his BP being high, his son wanted iw him checked out because he fell today. Coronavirus screen: At this time, the client does not indicate any symptoms associated with coronavirus-19. Ebola Screen: Patient negative for fever greater than or equal to 101.5 degrees Fahrenheit, and additional compatible Ebola Virus Disease symptoms Patient denies exposure to infectious person. Patient denies travel to an Ebola-affected area in the 21 days before illness onset. No symptoms or risks identified at this time. 17:08 Method Of Arrival: Wheelchair iw 17:14 Initial Sepsis Screen: Does the patient meet any 2 criteria? No. Patient's initial iw sepsis screen is negative. Does the patient have a suspected source of infection? No. Patient's initial sepsis screen is negative. Risk Assessment: Do you want to hurt yourself or someone else? Patient reports no desire to harm self or others. Onset of symptoms was November 09, 2022. 17:14 Acuity: VÍCTOR 4 iw Historical: - Allergies: 17:10 No Known Allergies; iw - PMHx: 17:10 Dementia; Hypertension; TIA; iw - Immunization history:: Adult Immunizations up to date. - Social history:: Smoking status: Patient denies any tobacco usage or history of. Screenin:14 [facility] ED Fall Risk Assessment (Adult) History of falling in the last 3 months, iw including since admission Yes- single mechanical fall (1 pt). Abuse screen: Denies threats or abuse. Denies injuries from another. Nutritional screening: No deficits noted. Tuberculosis screening: No symptoms or risk factors identified. Assessment: 17:14 General: Appears uncomfortable, Behavior is calm, cooperative. Pain: Denies pain. iw Neuro: Level of Consciousness is awake, alert. Derm: Skin is healthy with good turgor. 17:57 General: Appears in no apparent distress. Behavior is cooperative, appropriate for age. mb9 Pain: Denies pain. Neuro: Level of Consciousness is awake, alert, obeys commands, Oriented to person, place, time, situation, Appropriate for age. Cardiovascular: Heart tones S1 S2 present Patient's skin is warm and dry. Rhythm is regular. Derm: Skin is pink, warm \T\ dry. Musculoskeletal: Range of motion: intact in all extremities. Vital Signs: 17:08 BP 131 / 89; Pulse 110; Resp 18; Temp 99.8(O); Pulse Ox 97% on R/A; Weight 67.13 kg; iw Height 5 ft. 5 in. ; 17:57 BP 138 / 89; Pulse 78; Resp 18; Pulse Ox 100% on R/A; Pain 0/10; mb9 19:16 BP 129 / 86; Pulse 74; Resp 16; Pulse Ox 99% on R/A; mb9 17:08 Body Mass Index 24.63 (67.13 kg, 165.1 cm) iw 17:57 Pain Scale: Adult mb9 ED Course: 16:04 Patient arrived in ED. kj1 16:22 Jose Guadalupe Fulton PA is PHCP. [facility] 16:22 Thomas Ornelas MD is Attending Physician. [facility] 16:45 Attending Physician role handed off by Thomas Ornelas MD briana 16:45 Rodri Vergara MD is Attending Physician. briana 17:02 Blessing Muhammad, RUSLAN is Primary Nurse. iw 17:09 Arm band placed on. iw 17:14 Triage completed. iw 17:15 No provider procedures requiring assistance completed. Patient did not have IV access iw during this emergency room visit. 17:56 Placed in gown. Bed in low position. Call light in reach. Side rails up X 1. Client mb9 placed on continuous cardiac and pulse oximetry monitoring. NIBP monitoring applied. reefer truck driver on. 17:56 Troponin High Sensitivity Sent. mb9 17:56 BMP Sent. mb9 17:59 Chest Single View XRAY In Process Unspecified. EDMS 17:59 CT Head C Spine In Process Unspecified. EDMS Administered Medications: No medications were administered Medication: 17:15 VIS not applicable for this client. iw Outcome: 18:55 Discharge ordered by . jmm 19:16 Discharged to home ambulatory. mb9 19:16 Condition: stable 19:16 Discharge instructions given to patient, Instructed on discharge instructions, follow up and referral plans. Demonstrated understanding of instructions, follow-up care. 19:24 Patient left the ED. mb9 Signatures: Dispatcher [employer] Rodri Mayfield MD MD cha Mickail, Joel, PA PA jmm Williams, Irene, RN RN iw Jackson, Kandis kj1 Breneman, Mary Beth, RN RN mb9
[2022-11-09 19:46] VITALS: BP 129/86; TEMP 99.8; O2SAT 99
--- NOTE | 2022-11-10 11:22 | EKG ---
Test Date: 2022-11-09 Test Time: 18:27:55 Email Marketing Assistant: JONY MEASUREMENT RESULTS: Intervals: Rate: 87 [place]: 174 QRSD: 84 QT: 352 QTc: 423 [place]: P: 46 [place]: 174 QRS: 45 T: 40 INTERPRETIVE STATEMENTS: Sinus rhythm with premature atrial complexes Anterior infarct, age undetermined Inferior injury pattern ACUTE VT Abnormal ECG Compared to ECG 12/23/2020 22:55:10 Atrial premature complex(es) now present Myocardial infarct finding now present Electronically Signed On 11-10-22 11:20:10 CDT by Wild Crowell
== END 2022-11-09 19:24 | disposition home or self-care (01) ==
LOC: ER 16:00
DX: Z04.3 Encounter for examination and observation following other accident (principal); Z91.81 History of falling; I10 Essential (primary) hypertension; F03.90 Unspecified dementia, unspecified severity, without behavioral disturbance, psychotic disturbance, mood disturbance, and anxiety; Z86.73 Personal history of transient ischemic attack (TIA), and cerebral infarction without residual deficits
CPT/HCPCS: 36415; 70450; 71045; 72125; 80048; 84484; 85025; 93005

== ENCOUNTER → 2023-09-06 | Emergency (ER) | payer OTHER ==
[2023-09-06 11:00] LABS: Absolute Eosinophils 0.2 K/uL (0-0.5); Absolute Lymphocytes (CBC) 1.3 K/uL (0.7-4.9); Absolute Monocytes 0.5 K/uL (0.1-1.3); Absolute Neutrophil 2.2 K/uL (1.8-8.0); Basophils % 0.3 % (0-1.3); Eosinophils % 4.5 % (0-4.4); Hematocrit 31.8 % (39.6-49.0); Lymphocytes % 30.6 % (15.3-44.8); MCH 28.4 pg (27.0-35.0); MCHC 34.4 g/dL (32.0-36.0); MCV 82.3 fL (80-100); MPV 6.7 fL (7.6-11.3); Monocytes % 11.8 % (3.3-12.3); Neutrophils % 52.8 % (41.7-73.7); Platelets 211 thou/uL (152-406); RBC Red Blood Cell Count 3.86 M/uL (4.33-5.43); Red Cell Distribution Width 13.5 % (12.1-15.2)
--- NOTE | 2023-09-06 11:17 | RAD REPORT ---
EXAM DESCRIPTION: RAD - Chest Single View - 09/06/2023 11:09 am CLINICAL HISTORY: CHEST PAIN Chest pain. COMPARISON: Chest Single View dated 11/09/2022; Chest Single View dated 09/01/2022; Chest Single View d ated 12/23/2020; Chest Pa And Lat (2 Views) dated 06/21/2019 FINDINGS: Portable technique limits examination quality. The lungs are grossly clear. The heart is normal in size. No displaced fractures. IMPRESSION: No acute intrathoracic process suspected.
[2023-09-06 11:21] LABS: Anion Gap 6.1 mEq/L (5.0-15.0); Potassium 4.1 mEq/L (3.5-5.1); Troponin High Sensitivity 5.3 pg/mL (<58.9)
--- NOTE | 2023-09-06 13:06 | EDPHYS ---
Physician Documentation [facility] Name: Wagner Elias Age: 73 yrs Sex: Male : 1950 Arrival Date: 09/06/2023 Time: 10:33 Bed 8 Private MD: ED Physician Jean Claude Wick HPI: 09/05 10:39 This 73 yrs old Male presents to ER via Unassigned with complaints of low ec2 blood pressure concern. 10:39 Patient arrives today for evaluation of low blood pressure. Patient reports that he ec2 checked his blood pressure today and was noted to be in systolics of 90s. Patient reports that he has a history of hypertension, has not taken his hypertensive medications today. Patient reports no vomiting or diarrhea, no issues with p.o. intake recently. Patient also reports some left-sided chest discomfort earlier this morning. Patient states that this has since resolved. . Historical: - Allergies: 10:46 No Known Allergies; kc6 - PMHx: 10:46 Dementia; Hypertension; TIA; kc6 - Immunization history:: Adult Immunizations up to date. - Social history:: Smoking status: Patient denies any tobacco usage or history of. ROS: 10:39 Constitutional: as per hpi ec2 Exam: 10:39 Constitutional: GEN: NAD Head: atraumatic Eyes: EOMI Ears: External ears are ec2 normal. CV: regular rate LUNGS: no respiratory distress ABD: non-distended, soft, nontender, no guarding, nonrigid SKIN: no evidence of rashes MSK: no evidence of trauma NEURO: moves all extremities equally Vital Signs: 10:44 BP 105 / 67; Pulse 73; Resp 16 S; Pulse Ox 99% on R/A; Weight 63.5 kg (R); Height 5 ft. kc6 2 in. (R); Pain 0/10; 11:13 BP 111 / 63; Pulse 66; Resp 14 S; Pulse Ox 99% on R/A; kc6 11:53 BP 95 / 67; Pulse 68; Resp 16 S; Pulse Ox 99% on R/A; kc6 12:49 BP 120 / 78; Pulse 80; Resp 14 S; Pulse Ox 100% on R/A; kc6 10:44 Body Mass Index 25.61 (63.50 kg, 157.48 cm) kc6 10:44 Pain Scale: Adult kc6 MDM: 10:38 Patient medically screened. ec2 10:39 Data reviewed: vital signs. ED course: Patient arrives today for evaluation of low ec2 blood pressure. Examination remarkable for well-appearing nontoxic individual who is otherwise asymptomatic at this time. Obtain lab work, EKG, chest x-ray for further assessment patient complaint. Currently evaluate processes ACS, electrolyte disturbances, anemia. . 11:07 ED course: EKG independently reviewed and interpreted by me, shows normal sinus rhythm, ec2 rate of 68, no acute ST segment elevations, nonspecific T wave abnormalities noted in leads I, aVL,, II.. 11:25 ED course: Metabolic profile, CBC reassuring, slight anemia noted. Troponin within ec2 normal ranges. Chest x-ray with no acute intrathoracic process. Will obtain repeat EKG and troponin at the 2-hour eug[place]. . 12:07 ED course: Repeat EKG appears markedly unchanged, sinus rhythm, rate 67, no acute ST ec2 segment elevations. . 13:05 ED course: On reassessment patient remains well-appearing in no acute distress. Will ec2 discharge home. Return precautions given.. 09/05 10:39 Order name: Basic Metabolic Panel; Complete Time: 11:25 ec2 09/05 10:39 Order name: CBC with Diff; Complete Time: 11:25 ec2 09/05 10:39 Order name: Troponin HS; Complete Time: 11:25 ec2 09/05 11:51 Order name: Troponin High Sensitivity; Complete Time: 12:35 [facility] 09/05 10:39 Order name: XRAY Chest (1 view); Complete Time: 11:25 ec2 09/05 10:39 Order name: EKG; Complete Time: 10:39 ec2 09/05 10:39 Order name: Cardiac monitoring; Complete Time: 10:55 ec2 09/05 10:39 Order name: EKG - Nurse/Tech; Complete Time: 10:55 ec2 09/05 10:39 Order name: IV Saline Lock; Complete Time: 10:55 ec2 09/05 10:39 Order name: Labs collected and sent; Complete Time: 10:55 ec2 09/05 10:39 Order name: O2 Per Protocol; Complete Time: 10:48 ec2 09/05 10:39 Order name: O2 Sat Monitoring; Complete Time: 10:48 ec2 09/05 10:39 Order name: John. Order: repeat trop/ekg in 2 hours; Complete Time: 11:54 ec2 Administered Medications: No medications were administered Disposition Summary: 09/06/23 13:05 Discharge Ordered Notes: Location: Home ec2 Condition: Stable ec2 Diagnosis - Low Blood Pressure ec2 Followup: ec2 - With: Private Physician - When: - Reason: Recheck today's complaints Discharge Instructions: - Discharge Summary Sheet ec2 - How to Take Your Blood Pressure, [id number] ec2 Forms: - Medication Reconciliation Form ec2 - Thank You Letter ec2 - Antibiotic Education ec2 - Prescription Opioid Use ec2 - Patient Portal Instructions ec2 - Leadership Thank You Letter ec2 Signatures: Dispatcher [employer] Juliana Mi RN RN kc6 Jean Claude Wick MD MD ec2
--- NOTE | 2023-09-06 13:06 | ER ---
Nurse's Notes [facility] Name: Wagner Elias Age: 73 yrs Sex: Male : 1950 Arrival Date: 09/06/2023 Time: 10:33 Bed 8 Private MD: Diagnosis: Low Blood Pressure Presentation: 09/05 10:44 Chief complaint: EMS states: pt checked his BP this morning and the systolic was in the kc6 90's, reports that not being normal for him. pt denies cp or sob. Coronavirus screen: At this time, the client does not indicate any symptoms associated with coronavirus-19. Ebola Screen: No symptoms or risks identified at this time. Initial Sepsis Screen: Does the patient meet any 2 criteria? No. Patient's initial sepsis screen is negative. Does the patient have a suspected source of infection? No. Patient's initial sepsis screen is negative. Risk Assessment: Do you want to hurt yourself or someone else? Patient reports no desire to harm self or others. Onset of symptoms was September 06, 2023. 10:44 Method Of Arrival: EMS: [facility] kc6 10:44 Acuity: VÍCTOR 3 kc6 Triage Assessment: 10:46 General: Appears in no apparent distress. comfortable, well groomed, well developed, kc6 Behavior is calm, cooperative, appropriate for age. Pain: Denies pain. EENT: No signs and/or symptoms were reported regarding the EENT system. Neuro: Level of Consciousness is awake, alert, obeys commands, Oriented to person, place, time, situation, Appropriate for age. Cardiovascular: Denies chest pain, Heart tones S1 S2 present Capillary refill < 3 seconds. Respiratory: Airway is patent Trachea midline Respiratory effort is even, unlabored, Respiratory pattern is regular, symmetrical. GI: No signs and/or symptoms were reported involving the gastrointestinal system. : No signs and/or symptoms were reported regarding the genitourinary system. Derm: No signs and/or symptoms reported regarding the dermatologic system. Skin is intact, is healthy with good turgor, Skin is pink, warm \T\ dry. Musculoskeletal: No signs and/or symptoms reported regarding the musculoskeletal system. Circulation, motion, and sensation intact. Capillary refill < 3 seconds, Range of motion: intact in all extremities. Historical: - Allergies: 10:46 No Known Allergies; kc6 - PMHx: 10:46 Dementia; Hypertension; TIA; kc6 - Immunization history:: Adult Immunizations up to date. - Social history:: Smoking status: Patient denies any tobacco usage or history of. Screenin:47 [facility] ED Fall Risk Assessment (Adult) History of falling in the last 3 months, kc6 including since admission No falls in past 3 months (0 pts) Confusion or Disorientation No (0 pts) Intoxicated or Sedated No (0 pts) Impaired Gait No (0 pts) Mobility Assist Device Used No (0 pt) Altered Elimination No (0 pt) Score/Fall Risk Level 0 - 2 = Low Risk. Abuse screen: Denies threats or abuse. Denies injuries from another. Nutritional screening: No deficits noted. Tuberculosis screening: No symptoms or risk factors identified. Assessment: 10:47 Reassessment: please see triage. kc6 11:53 Reassessment: Patient appears in no apparent distress at this time. No changes from [facility] previously documented assessment. Patient and/or family updated on plan of care and expected duration. Pain level reassessed. Patient is alert, oriented x 3, equal unlabored respirations, skin warm/dry/pink. 12:49 Reassessment: Patient appears in no apparent distress at this time. No changes from 6 previously documented assessment. Patient and/or family updated on plan of care and expected duration. Pain level reassessed. Patient is alert, oriented x 3, equal unlabored respirations, skin warm/dry/pink. Vital Signs: 10:44 BP 105 / 67; Pulse 73; Resp 16 S; Pulse Ox 99% on R/A; Weight 63.5 kg (R); Height 5 ft. kc6 2 in. (R); Pain 0/10; 11:13 BP 111 / 63; Pulse 66; Resp 14 S; Pulse Ox 99% on R/A; kc6 11:53 BP 95 / 67; Pulse 68; Resp 16 S; Pulse Ox 99% on R/A; kc6 12:49 BP 120 / 78; Pulse 80; Resp 14 S; Pulse Ox 100% on R/A; kc6 10:44 Body Mass Index 25.61 (63.50 kg, 157.48 cm) kc6 10:44 Pain Scale: Adult kc ED Course: 10:38 Patient arrived in ED. ec2 10:38 Jean Claude Wick MD is Attending Physician. ec2 10:46 Triage completed. kc6 10:46 Arm band placed on. kc6 10:47 Juliana Stanley RN is Primary Nurse. kc6 10:47 Patient has correct armband on for positive identification. Bed in low position. Call kc6 light in reach. Side rails up X2. Client placed on continuous cardiac and pulse oximetry monitoring. NIBP monitoring applied. 10:47 Patient maintains SpO2 saturation greater than 95% on room air. kc6 10:55 Inserted saline lock: 18 gauge in right forearm, using aseptic technique. Blood kc6 collected. 11:04 EKG done, by ED staff. [email or web address] 11:11 XRAY Chest (1 view) In Process Unspecified. EDMS 13:14 Provided Education on: blood pressure. cp4 13:14 No provider procedures requiring assistance completed. intact, bleeding controlled, No cp4 redness/swelling at site. Pressure dressing applied. Administered Medications: No medications were administered Medication: 13:15 VIS not applicable for this client. cp4 Outcome: 13:05 Discharge ordered by . ec2 13:14 Discharged to home ambulatory, cp4 13:14 Condition: stable 13:14 Discharge instructions given to senior java software engineer, Instructed on discharge instructions, follow up and referral plans. Demonstrated understanding of instructions, follow-up care, 13:22 Patient left the ED. cp4 Signatures: Dispatcher [employer] Juliana Mi RN RN kc6 Jean Claude Wick MD MD 2 Lis Bray cp4 Mikel Peterson [email or web address]
[2023-09-06 14:15] VITALS: BP 120/78; O2SAT 100
== END ==
LOC: ER 10:33
DX: I95.9 Hypotension, unspecified (principal); I10 Essential (primary) hypertension; F03.90 Unspecified dementia, unspecified severity, without behavioral disturbance, psychotic disturbance, mood disturbance, and anxiety; Z86.73 Personal history of transient ischemic attack (TIA), and cerebral infarction without residual deficits
CPT/HCPCS: 36415; 71045; 80048; 84484; 85025; 93005